=== PATIENT | female | born 1995 | race Two or more races ===

== ENCOUNTER → 2024-09-08 | Emergency (ER) | payer OTHER ==
[~2024-09-08] VITALS: Ht 162.6 cm; Wt 90.7 kg
== END | disposition home or self-care (01) ==
LOC: ER 21:00
DX: Z53.21 Procedure and treatment not carried out due to patient leaving prior to being seen by health care provider (principal)

== ENCOUNTER 2024-10-07 15:19 | Outpatient (CLI) | payer OTHER | END 2024-10-07 15:23 | disposition home or self-care (01) | LOC: PRENATAL 15:19 | PROVIDERS: ATTEND Obstetrics & Gynecology Maternal & Fetal Medicine | DX: O36.80X0 Pregnancy with inconclusive fetal viability, not applicable or unspecified (principal); Z36.82 Encounter for antenatal screening for nuchal translucency; O26.20 Pregnancy care for patient with recurrent pregnancy loss, unspecified trimester; O26.859 Spotting complicating pregnancy, unspecified trimester; Z3A.12 12 weeks gestation of pregnancy ==

== ENCOUNTER → 2024-11-03 11:27 | Outpatient (CLI) | payer OTHER | END | disposition home or self-care (01) | LOC: PRENATAL 11:27 | PROVIDERS: ATTEND Obstetrics & Gynecology Maternal & Fetal Medicine | DX: O26.849 Uterine size-date discrepancy, unspecified trimester (principal); O26.20 Pregnancy care for patient with recurrent pregnancy loss, unspecified trimester; O26.859 Spotting complicating pregnancy, unspecified trimester; Z3A.16 16 weeks gestation of pregnancy ==

== ENCOUNTER 2024-11-27 23:37 | Emergency (ER) | payer OTHER ==
[~2024-11-27] VITALS: Ht 165.1 cm; Wt 59.0 kg
[2024-11-28] MEDS ORDERED: 0.9 % SODIUM CHLORIDE 1,000 ML IV STA (00:45)
[2024-11-28 01:21] LABS: BASO % 0.2 % (0.1-1.2); EOS # 0.36 (0.04-0.54); EOS % 2.5 % (0.7-7.0); HEMATOCRIT 34.6 % (34.1-44.9); HEMOGLOBIN 11.2 g/dL (11.2-15.7); LYMPH # 2.77 (1.18-3.74); LYMPH % 19.1 % (19.3-53.1); MEAN CORPUSCULAR HEMOGLOBIN 27.5 pg (25.6-32.2); MONO # 0.69 (0.24-0.82); MONO % 4.8 % (4.7-12.5); NEUT # 10.61 (1.56-6.13); NEUT % 73.1 % (34.0-71.1); PLATELET COUNT 352 K/uL (163-369); RED BLOOD COUNT 4.07 M/uL (3.93-5.22); RED CELL DISTRIBUTION WIDTH 13.6 % (11.6-14.4)
[2024-11-28 01:34] LABS: INR 1.01; PARTIAL THROMBOPLASTIN TIME 26.2 SECONDS (22.0-34.0)
[2024-11-28 01:39] LABS: ALBUMIN 2.8 gm/dL (3.4-5.0); BILIRUBIN TOTAL 0.2 mg/dL (0.3-1.2); CALCIUM 8.6 mg/dL (8.5-10.1); CREATININE SERUM 0.51 mg/dL (0.55-1.02); GFR 143.59; GLOBULINA 4.5 G/DL (2.4-3.5); POTASSIUM 3.48 mEq/L (3.5-5.1); TOTAL PROTEIN 7.3 gm/dL (6.4-8.2)
[2024-11-28 02:19] LABS: PH,URINE 6.5 (5.0-8.0); URINE APPEARANCE Clear; URINE BILIRRUBIN Negative (NEGATIVE); URINE BLOOD Negative; URINE COLOR Yellow; URINE GLUCOSE Negative (NEGATIVE); URINE KETONE Negative (NEGATIVE); URINE LEUKOCYTE Negative; URINE NITRATE Negative; URINE PROTEIN Negative (NEGATIVE); URINE UROBILINOGEN 0.2 E.U./dl
[2024-11-28 02:20] LABS: URINE BACTERIA 15.9 uL (0.0-1933); URINE EPITHELIAL CELLS 4.2 uL (0.0-38.8); URINE WBC 2.6 uL (0.0-23.2)
== END 2024-11-28 03:04 | disposition home or self-care (01) ==
LOC: ER 23:42
DX: Z34.90 Encounter for supervision of normal pregnancy, unspecified, unspecified trimester (principal); Z3A.19 19 weeks gestation of pregnancy; R10.2 Pelvic and perineal pain; Z88.6 Allergy status to analgesic agent